=== PATIENT | female | born 1985 | race Caucasian/White ===

== ENCOUNTER 2018-01-07 18:50 | Observation (INO) | END 2018-01-08 16:15 | disposition home or self-care (01) ==

== ENCOUNTER 2018-10-23 22:57 | Emergency (ER) | payer MEDICAID ==
[~2018-10-23] VITALS: Ht 160 cm; Wt 72.5 kg
[2018-10-23 23:03] VITALS: BP 114/56; PULSE 78; RESP 16; Ht 160 cm; Wt 72.5 kg
--- NOTE | 2018-10-24 00:50 | ERD ---
ER Documentation Chief Complaint Chief Complaint Pt requesting US after son ran into her ABD HPI Patient is a 33-year-old female, G6, P3, A2, who presents the ER requesting a pelvic ultrasound. Patient states herself and her child ran into each other earlier today prior to arrival. Patient reports mild pelvic pain. She denies any vaginal bleeding, fluid loss. Patient denies any nausea or vomiting. Patient denies fevers or chills. Patient states she is approximately 28 weeks . ROS All systems reviewed and are negative except as per history of present illness. Medications Home Meds No Active Prescriptions or Reported Meds Allergies Allergies: Coded Allergies: No Known Allergy (Unverified , 01/07/18) PMhx/Soc Medical and Surgical Hx: pt denies Surgical Hx Hx Miscellaneous Medical Probl: Yes (DVT ON BLOOD THINNERS ) Hx Alcohol Use: Yes Hx Substance Use: No Hx Tobacco Use: No Smoking Status: Never smoker FmHx Family History: No diabetes Physical Exam Vitals Vital Signs Date Temp Pulse Resp B/P (MAP) Pulse Ox O2 O2 Flow FiO2 Time Delivery Rate 10/23/18 97.9 78 16 114/56 100 23:03 (75) Physical Exam GENERAL: Well-developed, well-nourished female. Appears in no acute distress. HEAD: Normocephalic, atraumatic. EYES: Pupils are equally reactive bilaterally. EOMs grossly intact. No conjunctival erythema. ENT: Moist mucous membranes. No uvula deviation. No kissing tonsils. NECK: Supple. No meningismus. Normal range of motion of the neck. LUNG: Clear to auscultation bilaterally. No rhonchi, wheezing, rales or coarse breath sounds. HEART: Regular rate and rhythm. No murmurs, rubs or gallops. ABDOMEN: Gravid abdomen. Soft and nontender. Positive bowel sounds in all four quadrants. No rebound tenderness, no guarding. (-) McBurney's point tenderness. No CVA tenderness. BACK: No midline tenderness. EXTREMITIES: Equal pulses bilaterally. No peripheral clubbing, cyanosis or edema. No unilateral leg swelling. NEUROLOGIC: Alert and oriented. Moving all four extremities without any difficulty. Normal speech. Steady gait. SKIN: Normal color. Warm and dry. No rashes or lesions. Procedures/MDM ED COURSE: The patient was stable throughout ED course. I kept the patient and/or family informed of laboratory and diagnostic imaging results throughout the ED course. DIAGNOSTIC IMAGING: Read by radiologist. DIAGNOSTIC IMAGING REPORT Patient: LYNNETTE MARTINEZ : 1985 Age: 33 Sex: F MR #: [id number] DOS: 10/24/18 0042 Ordering MD: ARIELLE GONZALEZ PA-C Location: [facility] Room/Bed: PROCEDURE: US OB. CLINICAL INDICATION: Pelvic pain in TECHNIQUE: Multiple sonographic images of the pelvis were obtained. The images were reviewed on a PACS workstation. COMPARISON: None FINDINGS: The cervix measures 3.4 cm in length There is a single viable intrauterine gestation. Cardiac activity is present with 161 beats per minute. The fetus is in variable position.. Measurements were made in order to determine age. The results are as follows: BPD = 4.3 cm HC = 15.5 cm AC = 12.9 cm FL = 2.6 cm. Based on these current measurements: Estimated gestational age of approximately 18 weeks 3 days. Estimated gestational age by LMP or early exam is 17 weeks 3 days. The estimated date of delivery is 03/24/2019. Estimated date of delivery by LMP or early exam is 03/31/2019. The EFW = 231 g . Complete survey is not performed at this time. The placenta is anterior fundal. There is no evidence of abruption or placenta previa. There is a subjectively normal amount of amniotic fluid. IMPRESSION: 1. Single live intrauterine fetus at approximately 18 weeks 3 days by the above biometrics. The estimated weight is 231 g . 2. Variable position. 3. Unremarkable anterior fundal placenta. 4. Normal volume of amniotic fluid. RPTAT:AAJJ Physician Gia Date Time Electronically viewed and signed by Physician Gia on 10/24/2018 01:40 GW/ CC: ARIELLE GONZALEZ PA-C [id number] MEDICAL DECISION MAKING: This is a 33 year-old female presents the ER requesting pelvic ultrasound after her son ran into her abdomen prior to arrival. Patient denies any vaginal b leeding or fluid loss. Vital signs were reviewed. Patient was afebrile. Patient was hemodynamically stable. Urine test was positive. Pelvic ultrasound showed single live intrauterine fetus of 18 weeks and 3 days. Low suspicion for ectopic , ruptured ectopic , molar , subchorionic hematoma, spontaneous , incomplete , complete , missed , placental abruption, placental previa, vasa previa, uterine rupture, anembyronic . DISCHARGE: At this time, patient is stable for discharge and outpatient management.. I have instructed the patient to follow-up with her OBGYN in 1-2 days for further monitoring including a repeat b-HCG level. I have instructed the patient to promptly return to the ER at any time for any new or worsening symptoms including increased pain, nausea, vomiting, continued bleeding, weakness, s yncope or fever. The patient and/or family expressed understanding of and agreement with this plan. All questions were answered. Home care instructions were provided. Disclaimer: Inadvertent spelling and grammatical errors are likely due to EHR/dictation software use and do not reflect on the overall quality of patient care. Also, please note that the electronic time recorded on this note does not necessarily reflect the actual time of the patient encounter. Departure Diagnosis: Primary Impression: Pelvic pain affecting Trimester: unspecified trimester Qualified Codes: O26.899 - Other specified related conditions, unspecified trimester; R10.2 - Pelvic and perineal pain Condition: Fair Patient Instructions: Pelvic Pain In : Unclear (2-3 Trimester) Referrals: [facility] YOU HAVE RECEIVED A MEDICAL SCREENING EXAM AND THE RESULTS INDICATE THAT YOU DO NOT HAVE A CONDITION THAT REQUIRES URGENT TREATMENT IN THE EMERGENCY DEPARTMENT. FURTHER EVALUATION AND TREATMENT OF YOUR CONDITION CAN WAIT UNTIL YOU ARE SEEN IN YOUR DOCTORS OFFICE WITHIN THE NEXT 1-2 DAYS. IT IS YOUR RESPONSIBILITY TO MAKE AN APPOINTMENT FOR FOLOW-UP CARE. IF YOU HAVE A PRIMARY DOCTOR --you should call your primary doctor and schedule an appointment IF YOU DO NOT HAVE A PRIMARY DOCTOR YOU CAN CALL OUR PHYSICIAN REFERRAL HOTLINE AT IF YOU CAN NOT AFFORD TO SEE A PHYSICIAN YOU CAN CHOSE FROM THE FOLLOWING [facility] [address] [facility]. [facility] [address] [facility]. [facility] [address] [facility] [address] [facility] [phone] [facility]. [facility] [address] [facility]. [facility] YOU HAVE RECEIVED A MEDICAL SCREENING EXAM AND THE RESULTS INDICATE THAT YOU DO NOT HAVE A CONDITION THAT REQUIRES URGENT TREATMENT IN THE EMERGENCY DEPARTMENT. FURTHER EVALUATION AND TREATMENT OF YOUR CONDITION CAN WAIT UNTIL YOU ARE SEEN IN YOUR DOCTORS OFFICE WITHIN THE NEXT 1-2 DAYS. IT IS YOUR RESPONSIBILITY TO MAKE AN APPOINTMENT FOR FOLOW-UP CARE. IF YOU HAVE A PRIMARY DOCTOR --you should call your primary doctor and schedule and appointment IF YOU DO NOT HAVE A PRIMARY DOCTOR YOU CAN CALL OUR PHYSICIAN REFERRAL HOTLINE AT . IF YOU CAN NOT AFFORD TO SEE A PHYSICIAN YOU CAN CHOSE FROM THE FOLLOWING [facility] INSTITUTIONS: [facility] [address] [place] [address] [facility] [address] [place] [address] [facility] [address] [place] [address] [employer] [address] [facility] [address] [place], [place] [phone] OFFICE FAX APRIL TUCKER [address] [place] [place] [phone] [place] [address] [place], [place] [phone] [address] [address] [facility] [address] [address] [place] [phone] [facility] [address] [place] [address] [address] [facility] [id number] - [address]RDENAS, [place] [address], [facility] [address] [address], [place] [address] [facility]. [address], [facility] [address] [address], [place] [address] [place], [place] [phone] Additional Instructions: Llame al doctor MAANA y isai tiago AMBER PARA DENTRO DE 1-2 MEYER.Dgale a la secretaria que nosotros le instruimos hacer esta amber.Avise o llame si maier condicin se empeora antes de la amber. Regresa aqui si peor o no mejor. ARIELLE GONZALEZ PA-C Oct 24, 2018 00:50
== END 2018-10-24 02:22 | disposition home or self-care (01) ==
LOC: FTE 22:57
DX: O26.892 Other specified pregnancy related conditions, second trimester (principal); R10.2 Pelvic and perineal pain; Z3A.18 18 weeks gestation of pregnancy
CPT/HCPCS: 76805; Z7502